=== PATIENT | female | born 1980 | race Caucasian/White ===

== ENCOUNTER 2019-03-09 18:51 | Emergency (ER) | payer BC ==
[~2019-03-09] VITALS: Ht 172.7 cm; Wt 131.5 kg
--- NOTE | 2019-03-09 19:22 | PHYS DOC ---
Past Medical History Past Medical History: No Pertinent History (CAROLINE BAHENA) Past Surgical History: Other Additional Past Surgical Histo: Breast Reduction (CAROLINE BAHENA) Alcohol Use: None Drug Use: None (CAROLINE BAHENA) Adult General Chief Complaint Chief Complaint: LOWER EXTREMITY SWELLING HPI HPI Patient is a 39 year old F who called her PCP today concerned about her L lower leg being swollen, red and painful. She denies any hx of blood clots. She states the discomfort started about a week ago but only today did she notice the redness. She does have multiple risk factors for clot including estrogen device, smoker and obesity. Pt denies any CP or SOB. She is ambulatory in to ER without distress. (CAROLINE BAHENA) Review of Systems Review of Systems Constitutional: Denies fever or chills Respiratory: Denies cough or shortness of breath Cardiovascular: Denies chest pain GI: Denies abdominal pain, nausea, vomiting, bloody stools or diarrhea Musculoskeletal: Reports L leg pain Integument: Reports redness of left leg Neurologic: Denies headache, focal weakness or sensory changes All other systems were reviewed and found to be within normal limits, except as documented in this note. (CAROLINE BAHENA) Current Medications Current Medications Current Medications Medications (Trade) Dose Ordered Sig/Ginette Start Time Stop Time Status Last Admin Dose Admin Rivaroxaban (Xarelto) 10 mg DAILYWSUP 03/09/19 21:36 03/10/19 01:35 DC 03/09/19 22:15 10 MG (WYATT BA DO) Allergies Allergies Allergies Coded Allergies Type Severity Reaction Last Updated Verified No Known Drug Allergies 11/22/15 No (WYATT BA DO) Physical Exam Physical Exam Constitutional: Well developed, well nourished, no acute distress, non-toxic appearance. Neck: Normal range of motion, no tenderness, supple, no stridor. Cardiovascular:Heart rate regular rhythm, no murmur Lungs & Thorax: Bilateral breath sounds clear to auscultation Abdomen: Bowel sounds normal, soft, no tenderness, no masses, no pulsatile masses. Skin: Warm, dry. There is erythema of L leg behind knee and on calf. Mildly warm to touch. Tender to palpation. Back: No tenderness, no CVA tenderness. Extremities: Tenderness to lower L leg with erythema noted. Neurologic: Alert and oriented X 3, normal motor function, normal sensory function, no focal deficits noted. Psychologic: Affect normal, judgement normal, mood normal. (CAROLINE BAHENA) Current Patient Data Vital Signs Vital Signs Date Time Temp Pulse Resp B/P (MAP) Pulse Ox O2 Delivery O2 Flow Rate FiO2 03/09/19 21:47 67 18 138/67 (90) 100 Room Air 03/09/19 19:13 98.1 98.1 (WYATT BA DO) EKG EKG [] (CAROLINE BAEHNA) Radiology/Procedures Radiology/Procedures Ultrasound shows extensive occlusive superficial vein thrombus but no DVT (CAROLINE BAHENA) Course & Med Decision Making Course & Med Decision Making Pertinent Labs and Imaging studies reviewed. (See chart for details) I discussed ultrasound findings with doctor bench precision assembler for pt's PCP. Her PCP is Dr. Robson Neely and the bench precision assembler doctor was Dr. Horner. Discussed that while it is a superficial thrombus it is quite extensive and pt has a lot of risk factors for clotting including obesity, smoker, estrogen Nuvaring, and she is leaving tomorrow to go on a road trip to [place]. We both agree Xarelto for a couple weeks would be a good idea, rather then just ASA. Discussed with pt who is in agreement with plan. She will also call tomorrow to schedule a follow up visit with her doctor next week for recheck. Pt to return with any worsening of symptoms. First dose of Xarelto given in ER. (CAROLINE BAHENA) Dragon Disclaimer Dragon Disclaimer This electronic medical record was generated, in whole or in part, using a voice recognition dictation system. (CAROLINE BAHENA) Departure Departure Impression: Primary Impression: Superficial thrombophlebitis Disposition: HOME, SELF-CARE Condition: STABLE Referrals: UNKNOWN PCP NAME (PCP) Additional Instructions: We spoke to Dr. Horner, at your primary care office tonight and discussed your case. While it's a superfical clot, it is extensive and you have several risk factors of progressing to more severe clot. We have decided to put you on a blood thinner and have you call to schedule a close follow up with Dr. Neely next week. Please return to ER if symptoms worsen at anytime. Scripts Rivaroxaban (XARELTO) 10 Mg Tablet 1 TAB PO DAILY, #14 TAB Prov: CAROLINE BAHENA 03/09/19 Attending Signature Attending Signature I have reviewed the PA/HERBARIUM CURATOR's note and plan of care. I was available for consultation as needed during the patient's visit in the emergency department. I agree with the clinical impression, plan, and disposition. (WYATT BA DO) CAROLINE BAHENA Mar 09, 2019 19:22 WYATT BA DO Mar 14, 2019 05:02
[2019-03-09] MEDS ORDERED: METO100T7 PO (19:33)
[2019-03-09] MEDS ORDERED: AMLO10TA8 PO (19:33)
[2019-03-09] MEDS ORDERED: [UNRECOGNIZED DRUG - REMARK] (19:36)
--- NOTE | 2019-03-09 21:01 | RAD ---
Left lower extremity venous Doppler: Reason for examination: Left lower extremity pain for one week. Redness and swelling in the proximal calf for one day. The left lower extremity venous system was evaluated from the common femoral and greater saphenous veins distally to the calf veins with grayscale imaging, color-flow imaging and spectral analysis. The greater saphenous vein shows occlusive thrombus from the distal thigh to the mid calf. The deep venous system shows normal blood flow with no evidence of deep venous thrombosis. There is normal response to compression and augmentation. IMPRESSION: Occlusive thrombus in the greater saphenous vein from the distal thigh to the mid calf. No deep venous thrombosis seen. Electronically signed by: Chio Zamora MD (03/09/2019 8:58 PM) [facility]
[2019-03-09] MEDS ORDERED: RIVA10TA PO (21:31)
[2019-03-09] MEDS ORDERED: RIVAROXABAN 10 MG TABLET. PO SCH (21:36)
[2019-03-09 21:47] VITALS: BP 138/67
== END 2019-03-09 22:17 | disposition home or self-care (01) ==
LOC: ER 18:51
DX: I80.02 Phlebitis and thrombophlebitis of superficial vessels of left lower extremity (principal)
CPT/HCPCS: 93971; 99284-25